=== PATIENT | male | born 1995 | race Caucasian/White ===

== ENCOUNTER 2018-04-05 17:41 | Emergency (ER) | payer BC ==
[~2018-04-05] VITALS: Ht 180.3 cm; Wt 106.6 kg
[2018-04-05] MEDS ORDERED: TETANUS/DIPHTHERIA TOX ADULT 0.5 ML SYR IM ONE (22:00)
[2018-04-05] MEDS ORDERED: LIDOCAINE 1% W/EPINEPHRINE 20 ML VIAL INJ ONE (22:00)
[2018-04-05 22:12] VITALS: BP 145/89
== END 2018-04-05 22:21 | disposition home or self-care (01) ==
LOC: ER 17:41
DX: S01.112A Laceration without foreign body of left eyelid and periocular area, initial encounter (principal); W21.07XA Struck by softball, initial encounter; Y93.64 Activity, baseball; Y92.320 Baseball field as the place of occurrence of the external cause
CPT/HCPCS: 90471; 90714; 99282